=== PATIENT | female | born 1935 | race Caucasian/White ===

== ENCOUNTER 2023-12-25 14:52 | Emergency (ER) | payer MEDICARE, OTHER ==
[2023-12-25] MEDS ORDERED: Sodium Chloride 0.9% 10 ML Syringe FLUSH PRN (14:55)
[2023-12-25] MEDS ORDERED: Naloxone 0.4 MG/ML SDV IVPUSH PRN (14:57)
[2023-12-25] MEDS: Morphine 4 MG/ML VIAL IVPUSH ONE (15:10)
[2023-12-25] MEDS: Sodium Chloride 0.9% 1,000 ML IV SCH (15:10)
[2023-12-25] MEDS: Ondansetron 4 MG/2 ML SDV IVPUSH ONE (15:10)
[2023-12-25 15:20] LABS: BLOOD UREA NITROGEN,BUN 35 mg/dL (7-18); BUN/CREATININE RATIO 23.3 (9-20); CALCIUM 9.9 mg/dL (8.6-10.2); CARBON DIOXIDE,CO2 25 mmol/L (21-32); CHLORIDE,CL 98 mmol/L (100-110); CREATININE 1.5 mg/dL (0.55-1.02); ESTIMATED GFR 34 mL/min (>60); GLUCOSE RANDOM 129 mg/dL (80-116); POTASSIUM,K 4.2 mmol/L (3.5-5.3); SODIUM,NA 136 mmol/L (135-145)
[2023-12-25 15:24] LABS: HEMATOCRIT 42.6 % (34.2-48.2); HEMOGLOBIN 14.3 g/dL (11.4-15.5); MEAN CORPUSCULAR HEMOGLOBIN 31.8 pg (23.9-33.9); MEAN CORPUSCULAR HGB CONC 33.5 g/dL (31.9-34.8); MEAN CORPUSCULAR VOLUME 94.9 fL (76.7-100.5); MEAN PLATELET VOLUME 9.8 fL (7.1-12.4); PLATELET COUNT,PLT 143 x10(3)uL (151-488); RED BLOOD CELL COUNT 4.49 x10(6)uL (3.60-5.20); RED CELL DISTRIBUTION WIDTH 13.5 % (12.3-16.5); WHITE BLOOD CELL COUNT,WBC 6.5 x10-3/uL (3.0-10.3)
[2023-12-25 15:26] LABS: A/G RATIO 0.8; ALANINE AMINOTRANSFERASE,ALT 25 U/L (12-36); ALBUMIN 3.5 g/dL (3.2-4.6); ALKALINE PHOSPHATASE 70 IU/L (56-112); AMYLASE 69 U/L (25-115); ASPARTATE AMNIOTRANSFERASE,AST 22 IU/L (5-25); BILIRUBIN TOTAL 0.9 mg/dL (0.1-1.3)
[2023-12-25 16:15] LABS: BAND PERCENT MAN 2 % (0-6); LYMPHOCYTES PERCENT MAN 31 % (13-37); MONOCYTES PERCENT MAN 7 % (4-12); SEG NEUTROPHILS PERCENT MAN 60 % (46-82)
[2023-12-25 16:33] LABS: BILIRUBIN,URINE SMALL (NEGATIVE); GLUCOSE,URINE NORMAL (NORMAL); KETONES,URINE 15 mg/dL (NEGATIVE); LEUKOCYTE ESTERASE,URINE SMALL (NEGATIVE); NITRITE,URINE NEGATIVE (NEGATIVE); OCCULT BLOOD,URINE NEGATIVE (NEGATIVE); PROTEIN,URINE 30 mg/dL (NEGATIVE); UROBILINOGEN,URINE NORMAL (NEGATIVE)
[2023-12-25 16:48] LABS: APPEARANCE,URINE CLEAR (CLEAR); COLOR,URINE YELLOW (YELLOW); RBC,URINE 0-5 (0-5); WBC,URINE 0-5 (0-5)
[2023-12-25 16:49] LABS: AMORPHOUS SEDIMENT,URINE FEW; BACTERIA,URINE FEW (NS); HYALINE CASTS,URINE MODERATE (NS); MUCUS,URINE FEW (NS); SQUAMOUS EPITHELIAL CELLS,UR OCCASIONAL (NS,R,O)
[2023-12-25] MEDS: Iopamidol 755 Mg/ML 100 ML Bottle IV SCH ×2 (17:19→17:23)
[2023-12-25 18:36] LABS: LACTIC ACID 1.4 mmol/L (0.4-2.0)
[2023-12-25] MEDS: Lidocaine 2% HCl 6 ML Jel MM ONE (19:00)
== END 2023-12-25 22:13 ==
LOC: FB.ED 14:52
DX: K56.609 Unspecified intestinal obstruction, unspecified as to partial versus complete obstruction (principal); I10 Essential (primary) hypertension; I25.2 Old myocardial infarction; I25.10 Atherosclerotic heart disease of native coronary artery without angina pectoris; Z86.73 Personal history of transient ischemic attack (TIA), and cerebral infarction without residual deficits; M54.9 Dorsalgia, unspecified; G89.29 Other chronic pain; Z79.02 Long term (current) use of antithrombotics/antiplatelets; Z79.899 Other long term (current) drug therapy
CPT/HCPCS: 36415; 74177; 80053; 81001; 82150; 83605; 83690; 85025; 93005; 93010; 96361; 96374; 96375; 99285; J2270; J2405; J7030; Q9967